=== PATIENT | female | born 2005 | race Two or more races ===

== ENCOUNTER 2025-05-13 16:10 | Emergency (ER) | payer OTHER ==
[~2025-05-13] VITALS: Ht 152.4 cm; Wt 61.5 kg
--- NOTE | 2025-05-13 16:28 | ED.PDOC ---
GI ASSESSMENT HPI Comments HPI: This is a 19 year old female presenting to the ED with chief complaint of abdominal pain. Patient reports that she has been experiencing right upper abdominal pain intermittently since Saturday, however, she has associated symptoms of loss of appetite and nausea. Patient relays that after doing a sprinting drill yesterday at soccer practice, she started to have a few episodes of vomiting associated with her abdominal pain. Contrary to what triage states that the patient is experiencing right lower abdominal pain, patient notes no RLQ tenderness when palpated. Patient denies any , dizziness, fever, chills, dysuria, vaginal bleeding, or diarrhea. Initial Vitals BP: 149/100 HR: 70 RR: 16 O2: 97% Temp: 98.9F Past Medical History: None Past Surgical History: None Social History: Denies ETOH, smoking, and drug use. Medications: None Allergies: Penicillins HPI: Poor Historian. REVIEW OF SYSTEMS: CONSTITUTIONAL: Denies acute: fever, diaphoresis, chills, generalized weakness. HEAD: Denies acute: headache, photophobia Eyes: Denies acute: Double vision, vision loss, eye pain, eye discharge. EARS: Denies acute: tinnitus, hearing loss, ear discharge, ear pain, THROAT: Denies acute: sore throat, swelling, difficulty swallowing , pain with swallowing, change in voice. NECK: Denies acute: neck pain, neck swelling, stiff neck. HEART: Denies acute : chest pain, palpitations, LUNGS: Denies acute: SOB, wheezing, cough, hemoptysis ABDOMEN: Denies acute: diarrhea, melena , hematemesis, hematochezia SKIN: Denies acute: rash, redness, lesions, itchiness. EXTREMITIES: Denies acute: calf pain, numbness, tingling, weakness, denies pain in extremity. Denies acute: Low back pain. Neuro: Denies acute: focal neurological deficit, motor or sensory focal neurological deficit, tremors, seizure like activity, confusion, dizziness, change in mental status, loss of bowel or bladder function, cauda equina like symptoms. : Denies acute: dysuria, hematuria, flank pain, increase in urinary frequency. PSYCH: Denies acute: hallucination, suicidal ideation, homicidal ideation. FEMALE: Denies acute: abnormal vaginal bleeding, foul odor, unusual discharge. PHYSICAL EXAM: General: ----no----acute distress, awake and alert. Head: normocephalic, atraumatic. Neck: supple, trachea is midline, no swelling. Throat: Normal phonation. Eyes:, no erythema, no purulent discharge, no proptosis, no icterus. Heart: regular rate, regular rhythm, no significant murmur appreciated. Lungs: no apparent respiratory distress, Able to speak in full sentences. No wheezing, no rhonchi, no crackles. No stridors Clear to auscultation bilaterally. Abdomen: Right upper quadrant tender to palpation, non distended, soft, no guarding, no rebound, + bowel sounds. Specifically no right lower quadrant or left lower quadrant abdominal pain. Neuro: Awake, Alert, oriented to name, self, situation, follows commands GCS=15. Speech is normal. Skin: no petechia, no purpura, no cyanosis, non-pale, not jaundice. Lower extremities: --no - Pitting edema no deformity, no focal swelling, no calf TTP. Makes eye contact. moves all four extremities. Face: no apparent facial droop. No CVA tenderness to percussion bilaterally. Ambulating in the ED independently. No nuchal rigidity, Kernig's sign, Brudzinski's sign, no meningeal signs. ED COURSE: DISCLAIMER: This medical document was created using an electronic medical record system with voice recognition software and computerized dictation system. Although this document has been carefully reviewed, there might still be some phonetic and typographical errors. Occasional wrong-word or "sound-alike" substitutions may have occurred due to the inherent limitations of voice recognition software. These areas are purely typographical due to imperfections of the software programs and do not reflect any compromise in the patient's medical care. Please read the chart carefully and recognize, using context, where these substitutions have occurred. Chief Complaint: Abdominal Pain Time Seen by MD: 16:24 Reviewed Notes: Medications, Allergies Allergies: Coded Allergies: Penicillins (Verified Allergy, Unknown, 05/13/25) TOLD SINCE SHE WAS A CHILD Home Meds Active Scripts Nitrofurantoin Monohydrate Mac (Macrobid) 100 Mg Cap, 100 MG PO BID for 7 Days, #14 CAP Prov:POOJA DYER MD 05/13/25 Ondansetron Odt 4MG Tab (ZOFRAN PO) 4 Mg Tb, 4 MG PO Q8HPRN PRN for 3 Days, #9 TAB ODT TAB-DISSOLVE IN MOUTH, THEN SWALLOW Prov:POOJA DYER MD 05/13/25 Information Source: Patient Mode of Arrival: Ambulatory Was a procedure done? Was a procedure done?: No X-Ray, Labs, Meds, VS Vital Signs Date Time Temp Pulse Resp B/P (MAP) Pulse Ox O2 Delivery O2 Flow Rate FiO2 05/13/25 18:58 98.4 87 16 152/94 (113) 98 98.4 05/13/25 17:23 80 18 96 Room Air 05/13/25 17:23 98.5 80 18 145/100 (115) 96 98.5 05/13/25 16:11 98.9 70 16 149/100 97 98.9 Lab Test 05/13/25 17:27 05/13/25 16:29 Range/Units White Blood Count 10.2 4.4-10.8 10^3/uL Red Blood Count 5.13 4.0-5.20 10^6/uL Hemoglobin 16.1 12.2-16.2 g/dL Hematocrit 45.3 36.0-46.0 % Mean Corpuscular Volume 88.4 80.0-100.0 fL Mean Corpuscular Hemoglobin 31.4 28.0-32.0 pg Mean Corpuscular Hemoglobin Concent 35.6 32.0-36.0 g/dL Red Cell Distribution Width 13.2 11.8-14.3 % Platelet Count 348 140-450 10^3/uL Mean Platelet Volume 7.7 6.9-10.8 fL Neutrophils (%) (Auto) 70.6 37.0-80.0 % Lymphocytes (%) (Auto) 22.3 10.0-50.0 % Monocytes (%) (Auto) 6.0 0.0-12.0 % Eosinophils (%) (Auto) 0.6 0.0-7.0 % Basophils (%) (Auto) 0.5 0.0-2.0 % Neutrophils # (Auto) 7.2 1.6-8.6 10 ^3/uL Lymphocytes # (Auto) 2.3 0.4-5.4 10 ^3/uL Monocytes # (Auto) 0.6 0-1.3 10 ^3/uL Eosinophils # (Auto) 0.1 0-0.8 10 ^3/uL Basophils # (Auto) 0.1 0-0.2 10 ^3/uL Nucleated Red Blood Cells 0.2 % Sodium Level 136 136-145 mmol/L Potassium Level 3.9 3.5-5.1 mmol/L Chloride Level 103 98-107 mmol/L Carbon Dioxide Level 23 20-31 mmol/L Anion Gap 10 5-15 Blood Urea Nitrogen 15 9-23 mg/dL Creatinine 0.87 0.550-1.02 mg/dL Glomerular Filtration Rate Calc 98 >90 mL/min BUN/Creatinine Ratio 17.2 10.0-20.0 Serum Glucose 95 74-106 mg/dL Lactic Acid Level 1.1 0.4-2.0 mmol/L Calcium Level 10.1 8.7-10.4 mg/dL Total Bilirubin 1.6 H 0.2-1.0 mg/dL Aspartate Amino Transferase (AST) 21 13-40 U/L Alanine Aminotransferase (ALT) 16 7-40 U/L Alkaline Phosphatase 62 46-116 U/L Total Protein 8.3 H 5.7-8.2 g/dL Albumin 5.3 H 3.2-4.8 g/dL Lipase 42 12-53 U/L Urine Color Yellow Yellow Urine Clarity Clear Clear Urine pH 6.0 5.0-9.0 Urine Specific [place] 1.034 1.001-1.035 Urine Protein Trace H Negative Urine Ketones 2+ H Negative Urine Blood Trace H Negative /uL Urine Nitrite Negative Negative Urine Bilirubin Negative Negative Urine Urobilinogen Normal Negative mg/dL Urine Leukocyte Esterase 2+ Negative /uL Urine RBC 5 0 - 4 /hpf Urine Microscopic WBC 15 H 0-5 /HPF Urine Squamous Epithelial Cells Few <5 /hpf Urine Bacteria None seen None Seen /hpf Urine Mucus Few None Seen Urine Glucose Normal Normal mg/dL Urine Test Negative Negative Current Medications Medications (Trade) Dose Ordered Sig/Shahzad Route Start Time Stop Time Status Last Admin Sodium Chloride 1,000 ml @ 1,000 mls/hr Q1H ONCE IV 05/13/25 16:30 05/13/25 17:29 DC 05/13/25 17:35 Ondansetron HCl (Zofran) 8 mg ONCE ONCE IV 05/13/25 16:30 05/13/25 16:37 DC 05/13/25 17:34 Ceftriaxone Sodium 50 ml @ 100 mls/hr ONCE ONCE IV 05/13/25 17:00 05/13/25 17:29 DC 05/13/25 17:34 Ketorolac Tromethamine (Toradol Injection) 30 mg ONCE ONCE IV 05/13/25 18:15 05/13/25 18:25 DC 05/13/25 18:31 [place] [address] Ph: [phone] DIAGNOSTIC IMAGING Diagnostic Imaging Report : [id number] Signed PATIENT: THEODORE REYES ACCT: [id number] UNIT: [id number] : 2005 LOC: ER ROOM / BED: / AGE / SEX: 19 / F ADM STATUS: REG ER SERVICE 36 ORDERING PHYSICIAN: TRE VO DO PROCEDURE(s): ABDL - ABDOMEN LIMITED REASON: RUQ ABD PAIN ORDER NUMBER(s): [id number], ACCESSION NUMBER(s): [id number] ULTRASOUND ABDOMEN, LIMITED RIGHT UPPER QUADRANT: REASON FOR EXAM: RUQ ABD PAIN TECHNIQUE: Real-time sector scans in the transverse and longitudinal planes were obtained through the right upper quadrant of the abdomen. FINDINGS: The liver is of normal size and contour. There is hepatopetal flow in the portal vein. There is no intrahepatic nor extrahepatic biliary ductal dilatation. The common bile duct measures 3 mm. There is sludge within the gallbladder. No gallstone is identified. There is no gallbladder wall thickening nor pericholecystic fluid. There is no sonographic Rocha's sign. The visualized portion of the pancreas is unremarkable. The right kidney measures 9.2 cm. No hydronephrosis or nephrolithiasis is identified. There is no evidence of right renal mass or cyst. The visualized portions of the abdominal aorta demonstrate no evidence of aneurysmal dilatation. The visualized inferior vena cava is unremarkable. There is no free fluid identified in the right upper quadrant. IMPRESSION: Gallbladder contains debris. No gallstone identified. No sonographic rocha's sign. ATED BY: MAX HANNAH MD DICTATED DATE/TIME: 05/13/251751 SIGNED BY: MAX HANNAH MD SIGNED DATE/TIME: 05/13/251751 CC: Time of 1ST Reevaluation: 17:24 Reevaluation 1ST: Unchanged Patient Education/Counseling: Diagnosis, Treatment Family Education/Counseling: No Family Present Comments MDM: patient presented with the above HPI.--abdominal pain----workup was initiated. patient was found with the above mentioned diagnosis. the following medications were ordered: please refer to order lists of meds and tests obtained by myself Dr. Vo. Patient ED course and VS have been stabilized. Patient has been reassessed in the ED and remained in a stable condition. Pertinent incidental findings were discussed with the patient and/or family. Patient/family voices understanding and is agreeable with plan. Patient has been observed in the ED adequate length of time to insure improvement/stability. Escalation of care considered: Consideration of escalation to observation or admission No leukocytosis, no fever, no right lower quadrant abdominal pain, Patient was DISCHARGED home in a stable condition. All the reports of any imaging studies that were ordered by myself were reviewed by myself. Departure 1 Departure Time of Disposition: 18:06 Impression: Primary Impression: Urinary tract infection Additional Impressions: Abdominal pain Nausea and vomiting Disposition: HOME / SELF CARE / HOMELESS Condition: Stable Additional Instructions: Additional instructions: You MUST follow-up with your primary care/family doctor in 1 to 2 days. If you are unable to see your primary care/family doctor, please return to our emergency room for re-assessment and re-evaluation in 1 to 2 days. Return to the emergency room here in our facility or to the nearest ER [facility] if your symptoms change or worsen. CONSULTATIONS: you MUST Follow-up for consultation as soon as possible with: -gastroenterology and OB Gyne doctor in 1-2 days. Please call for appointment. You MUST call the consultants office yourself to make an appointment. You may need to arrange that through your insurance and/or your primary/family doctor. If you are unable to see the [facility] consultant in 1 to 2 days, you must return to our emergency room (or any other ER of your choice) for re-assessment and re- evaluation. Adequate fluid hydration. Return for reassessment in 12-24 hours or sooner if needed. Below is a copy of your radiological report for follow up: [address] [address] Ph: [phone] DIAGNOSTIC IMAGING Diagnostic Imaging Report : [id number] Signed PATIENT: THEODORE REYES ACCT: [id number] UNIT: [id number] : 2005 LOC: ER ROOM / BED: / AGE / SEX: 19 / F ADM STATUS: REG ER SERVICE [id number] ORDERING PHYSICIAN: TRE VO DO PROCEDURE(s): ABDL - ABDOMEN LIMITED REASON: RUQ ABD PAIN ORDER NUMBER(s): [id number], ACCESSION NUMBER(s): [id number] ULTRASOUND ABDOMEN, LIMITED RIGHT UPPER QUADRANT: REASON FOR EXAM: RUQ ABD PAIN TECHNIQUE: Real-time sector scans in the transverse and longitudinal planes were obtained through the right upper quadrant of the abdomen. FINDINGS: The liver is of normal size and contour. There is hepatopetal flow in the portal vein. There is no intrahepatic nor extrahepatic biliary ductal dilatation. The common bile duct measures 3 mm. There is sludge within the gallbladder. No gallstone is identified. There is no gallbladder wall thickening nor pericholecystic fluid. There is no sonographic Rocha's sign. The visualized portion of the pancreas is unremarkable. The right kidney measures 9.2 cm. No hydronephrosis or nephrolithiasis is identified. There is no evidence of right renal mass or cyst. The visualized portions of the abdominal aorta demonstrate no evidence of aneurysmal dilatation. The visualized inferior vena cava is unremarkable. There is no free fluid identified in the right upper quadrant. IMPRESSION: Gallbladder contains debris. No gallstone identified. No sonographic rocha's sign. ATED BY: MAX HANNAH MD DICTATED DATE/TIME: 05/13/251751 SIGNED BY: MAX HANNAH MD SIGNED DATE/TIME: 05/13/251751 CC: e-Prescriptions Nitrofurantoin Monohydrate Mac (Macrobid) 100 Mg Cap 100 MG PO BID for 7 Days, #14 CAP Prov: POOJA DYER MD 05/13/25 Ondansetron Odt 4MG Tab (ZOFRAN PO) 4 Mg Tb 4 MG PO Q8HPRN PRN for 3 Days, #9 TAB ODT TAB-DISSOLVE IN MOUTH, THEN SWALLOW Prov: POOJA DYER MD 05/13/25 Discharged With: Self Comments [Called to evaluate patient for elevated blood pressure. Nurse reporting blood pressure of 152/94. Patient is denying headache, chest pain, blurred vision. She is advised of importance of follow up with PCP promptly to have her blood pressure re-checked and further evaluation if needed. Patient felt stable for discharge. Pooja Dyer MD ] Critical Care Note Critical Care Time?: No I personally scribed for TRE VO DO ([email or web address]) on 05/13/25 at 16:28. Electronically submitted by Torito Wilson ([email or web address]). I personally scribed for TRE VO DO ([email or web address]) on 05/13/25 at 18:00. Electronically submitted by Torito Wilson ([email or web address]). TRE VO DO May 13, 2025 16:28 POOJA DYER MD May 13, 2025 19:17
[2025-05-13 16:40] LABS: Urine Protein, UAD TRACE (Negative)
[2025-05-13] MEDS: ONDANSETRON HCL 4 MG/2 ML VIAL IV ONE (17:34)
[2025-05-13] MEDS: cefTRIAXone 1GM/50ML D5W 50 ML IV ONE (17:34)
[2025-05-13] MEDS: SODIUM CHLORIDE 0.9% 1,000 ML IV ONE (17:35)
[2025-05-13 17:41] LABS: Hematocrit 45.3 % (36.0-46.0); Hemoglobin 16.1 g/dL (12.2-16.2); Mean Corpuscular Hemoglobin 31.4 pg (28.0-32.0); Mean Corpuscular Volume 88.4 fL (80.0-100.0); Nucleated Red Blood Cells % 0.2 %
[2025-05-13 17:54] LABS: Alanine Aminotransferase 16 U/L (7-40); Alkaline Phosphatase 62 U/L (46-116); Anion Gap 10 (5-15); BUN/Creatinine Ratio 17.2 (10.0-20.0); Blood Urea Nitrogen 15 mg/dL (9-23); Calcium 10.1 mg/dL (8.7-10.4); Carbon Dioxide 23 mmol/L (20-31); Chloride 103 mmol/L (98-107); Glucose 95 mg/dL (74-106); Lipase 42 U/L (12-53); Potassium 3.9 mmol/L (3.5-5.1); Sodium 136 mmol/L (136-145)
--- NOTE | 2025-05-13 17:55 | DVH ---
ULTRASOUND ABDOMEN, LIMITED RIGHT UPPER QUADRANT: REASON FOR EXAM: RUQ ABD PAIN TECHNIQUE: Real-time sector scans in the transverse and longitudinal planes were obtained through th e right upper quadrant of the abdomen. FINDINGS: The liver is of normal size and contour. There is hepatopetal flow in the portal vein. The re is no intrahepatic nor extrahepatic biliary ductal dilatation. The common bile duct measures 3 mm . There is sludge within the gallbladder. No gallstone is identified. There is no gallbladder wall thickening nor pericholecystic fluid. There is no sonographic Rocha's sign. The visualized portion of the pancreas is unremarkable. The right kidney measures 9.2 cm. No hydronephrosis or nephrolithiasis is identified. There is no e vidence of right renal mass or cyst. The visualized portions of the abdominal aorta demonstrate no evidence of aneurysmal dilatation. The visualized inferior vena cava is unremarkable. There is no free fluid identified in the right upper quadrant. IMPRESSION: Gallbladder contains debris. No gallstone identified. No sonographic rocha's sign.
[2025-05-13 18:03] LABS: Albumin 5.3 g/dL (3.2-4.8); Bilirubin, Total 1.6 mg/dL (0.2-1.0); Total Protein 8.3 g/dL (5.7-8.2)
[2025-05-13] MEDS ORDERED: ZOFR4T PO ×2 (18:09→18:54)
[2025-05-13] MEDS ORDERED: NITR-87 PO ×2 (18:09→18:54)
[2025-05-13] MEDS: KETOROLAC TROMETH 30 MG/ML 1ML VIAL IV ONE (18:31)
[2025-05-13 18:58] VITALS: BP 152/94; PULSE 87; RESP 16; TEMP 98.4; O2SAT 98
== END 2025-05-13 19:01 | disposition home or self-care (01) ==
LOC: ER 16:10
DX: N39.0 Urinary tract infection, site not specified (principal); Z88.0 Allergy status to penicillin
CPT/HCPCS: 36415; 76705; 80053; 81001; 81025; 83605; 83690; 85025; 96365; 96375; 99285; J0696; J1885; J2405; J7030